=== PATIENT | male | born 1985 ===

== ENCOUNTER → 2024-07-22 13:32 | Outpatient (REF) | payer OTHER, SELFPAY | LOC: CPAP 13:32 | PROVIDERS: ATTENDING PHYSICIAN Surgery | DX: Z86.19 Personal history of other infectious and parasitic diseases (principal) | CPT/HCPCS: 87624; 88112 ==

== ENCOUNTER 2025-05-12 13:55 | Emergency (ER) | payer BC, SELFPAY ==
[2025-05-12 13:57] VITALS: BP 125/86
[2025-05-12 14:00] VITALS: BP 187/170; BMI 25.2
--- NOTE | 2025-05-12 14:15 | ED.GENMED ---
History of Present Illness
General
Chief Complaint: Allergic Reaction
Source: patient
Exam Limitations: none
Time Seen by Provider: 05/12/25 14:06
Nursing documentation reviewed up to this point in time: agreed with
History of Present Illness
History of Present Illness:
39-year-old male with no significant past medical history states he was stung by a bee at the base of his right fifth finger at 1130 at home, about 45 minutes later he had swelling of his hand, he admits that he panicked and got very anxious, took
Benadryl 25 mg and was afraid he was going to from the bee sting so came here. He now has slight tingling of his tongue and the fingers of his left hand that he states is much improved from initially. He denies chest pain or trouble breathing,
denies N/V. He did go to ER about 10 yrs ago after sting (not life threatening) and given epi pen but never used it.
Past History
Past History
ED Past Medical History: None
ED Past Surgical History: Other (Vasectomy)
Social History
Tobacco: Non-smoker
Alcohol: Occasional
Personal:
Living: with family
Employment: Employed
Review of Systems
Review of Systems
Allergies reviewed?: Yes
All Other Systems: ROS reviewed and negative except as documented in HPI and ROS
Constitutional: Denies fever
Respiratory: Denies trouble breathing
Cardiac: Denies chest pain
ABD/GI: Denies abdominal pain or nausea
Skin: Reports other (Swelling and tenderness right hand)
Phy Exam
Physical Exam
Physical Exam:
GENERAL: No acute distress. A&Ox3.
CONSTITUTIONAL: Afebrile.
EYES: clear, conjunctivae normal
ENMT: moist mucus membranes, Pharynx nl
RESPIRATORY: Regular respirations, nonlabored, lungs clear.
CARDIOVASCULAR: Regular rate and rhythm, no murmurs, no rubs.
GI: Soft, nontender, normal BS
MUSCULOSKELETAL: Moves with ease. Well perfused.
SKIN: Warm, dry, pink, right hand mildly swollen, mildly reddened at the base of the fifth finger at site of sting. Distal neurovascular intact.
PSYCH: Anxious mood and affect. Well kept, interactive and appropriate
NEUROLOGIC: Awake, alert and oriented. No focal neurological deficits
Course
Orders/Labs/Results
Orders:
Orders
05/12/25 14:15
Dexamethasone [Decadron] 10 mg PO NOW STA
Vital Signs
Initial and Last Documented VS:
Initial Vital Signs
Temp Pulse Resp BP Pulse Ox
98.8 F 79 15 125/86 96
05/12/25 13:57 05/12/25 13:57 05/12/25 13:57 05/12/25 13:57 05/12/25 13:57
Last Documented Vital Signs
Temp Pulse Resp BP Pulse Ox
98.8 F 68 14 107/73 98
05/12/25 13:57 05/12/25 15:15 05/12/25 15:15 05/12/25 15:00 05/12/25 15:15
MDM/Problems Addressed
Differential Diagnosis Includes:
Local reaction to bee sting, anaphylaxis
MDM/Problems Addressed:
39-year-old male with no significant past medical history states he was stung by a bee at the base of his right fifth finger at 1130 at home, about 45 minutes later he had swelling of his hand, he admits that he panicked and got very anxious, took
Benadryl 25 mg and was afraid he was going to from the bee sting so came here. He now has slight tingling of his tongue and the fingers of his left hand that he states is much improved from initially. He denies chest pain or trouble breathing,
denies N/V. He did go to ER about 10 yrs ago after sting (not life threatening) and given epi pen but never used it.
Afebrile, NAD
No systemic symptoms. No anaphylaxis
3:15 PM:
BP 107/73, heart rate 84
Patient states his hand is much less swollen and wants to go home
Stable for discharge
*Pulse Oximetry
SaO2: 99
Oxygen Mode of Delivery: Room air
Patient hypoxic: no
*Critical Care Note
Total Time (30-74mins, 75-104mins- exclusive of procedures): Not Applicable
ED Attending Note
-
Portions of this chart may have been created with voice recognition software.� Occasional wrong word or��sound alike� substitutions may have occurred due to the inherent limitations of voice recognition software.
Discharge Plan
Departure
Patient Disposition: Home (Routine Discharge)
Date of Disposition: 05/12/25
Time of Disposition: 15:17
Patient with high blood pressure during this ER visit?: No
Condition: Good
Discharge Problem:
Bee sting
Instructions: Insect bites and stings - ED discharge instructions
Prescriptions:
New
epinephrine [EpiPen 2-Marcus] 0.3 mg/0.3 mL auto-injector
0.3 mg IM Q5-15M PRN (Reason: hypersensitivity reaction) Qty: 2 0RF
Referrals:
UNKNOWN - PT DOES,NOT KNOW [Family Provider]
Activity Restrictions/Additional Instructions:
As we discussed, I sent a prescription to your pharmacy for 2 EpiPen's
You may continue Benadryl 25 to 50 mg every 6 hours as needed for itching or swelling.
You were given a dose of Decadron, a steroid here today to help with the inflammation.
Interventions
Interventions:
*Risk Screen - Suicide Last Done: 05/12/25 13:57
*General Assessment Last Done: 05/12/25 13:57
*Neglect/Abuse Screening Last Done: 05/12/25 13:57
*ED- Fall Risk Assessment Last Done: 05/12/25 14:00
*ED COVID-19 Vaccine History Last Done: 05/12/25 13:57
*Nursing Disposition Last Done: 05/12/25 16:00
ED- Cardiac Assessment Last Done: 05/12/25 14:00
ED- Pulmonary Assessment Last Done: 05/12/25 14:00
ED-Skin Assessment Last Done: 05/12/25 14:00
Discharge Date and Time
Discharge Date/Time: 05/12/25 16:00
Print Language: LITHUANIAN
[2025-05-12 14:20] VITALS: BP 117/67
[2025-05-12] MEDS: DECADRON 10 MG PO (14:20)
[2025-05-12 15:00] VITALS: BP 107/73
== END 2025-05-12 16:00 | disposition home or self-care (01) ==
LOC: EMR 13:55
PROVIDERS: EMERGENCY PHYSICIAN Student in an Organized Health Care Education/Training Program
DX: T63.441A Toxic effect of venom of bees, accidental (unintentional), initial encounter (principal); M79.89 Other specified soft tissue disorders
CPT/HCPCS: 99283